=== PATIENT | female | born 1985 | race Caucasian/White ===

== ENCOUNTER → 2023-04-21 15:07 | Outpatient (BNVA) | payer OTHER, SELFPAY | PROVIDERS: PCP Internal Medicine; Visit Provider Nurse Practitioner Family | DX: G43.909 Migraine, unspecified, not intractable, without status migrainosus (principal); R90.89 Other abnormal findings on diagnostic imaging of central nervous system; R41.3 Other amnesia | CPT/HCPCS: 99212 ==

== ENCOUNTER 2023-06-29 14:31 | Outpatient (REF) | payer OTHER, SELFPAY ==
--- NOTE | ~2023-06-29 | MR_ITS ---
EXAMINATION: MR BRAIN WITHOUT AND WITH CONTRAST CLINICAL INFORMATION: Abnormal findings on prior MRI scan. Follow-up. COMPARISON: [facility] 10/21/2021. TECHNIQUE: Multiplanar, multisequence MRI of the brain was obtained before and after the intravenous administration of 8 mL Gadavist. FINDINGS: No diffusion abnormalities are identified to suggest an acute or subacute infarct. No mass effect or midline shift is seen. The ventricles and sulci are normal in size. The study redemonstrates multiple small foci of hyperintense T2 and FLAIR signal in the periventricular and subcortical white matter bilaterally. Overall, the distribution of the foci appears similar compared to the prior study. None of the foci demonstrate restricted diffusion or abnormal enhancement. No extra-axial fluid collections are seen. The brainstem appears normal. On postcontrast imaging, there is no abnormal parenchymal or leptomeningeal enhancement. No pathologic magnetic susceptibility artifact is identified on the gradient refocused acquisition. The cerebellar tonsils have normal contour and position, and the craniocervical junction appears normal. Marrow signal and midline structures are normal. The major intracranial flow-voids at the level of the ven[place] of [place] are preserved. The dural venous sinus flow-voids are maintained. The mastoid air cells and paranasal sinuses are well-aerated. MR/MR head/brain wo/w con IMPRESSION: The study redemonstrates multiple small foci of hyperintense T2 and FLAIR signal in the periventricular and subcortical white matter which are nonspecific, and appear stable. They may be consistent with sequelae of vasculitis or migraine. The patient is relatively young for microvascular ischemic changes. The findings may be in a distribution consistent with demyelination in the correct clinical setting.
[2023-06-29] MEDS: gadobutroL 10 ML VIAL IVPUSH (15:20)
== END 2023-06-29 14:32 | disposition home or self-care (01) ==
LOC: HO.MRI 14:31
PROVIDERS: Visit Provider Nurse Practitioner Family
DX: R90.89 Other abnormal findings on diagnostic imaging of central nervous system (principal); R41.3 Other amnesia; R20.2 Paresthesia of skin
CPT/HCPCS: 70553; A9585